=== PATIENT | female | born 1995 | race Caucasian/White ===

== ENCOUNTER 2021-09-12 18:04 | Emergency (ER) | payer OTHER, SELFPAY ==
[2021-09-12 18:05] VITALS: PULSE 112; RESP 17; TEMP 36.6; O2SAT 99; BMI 30.4
[2021-09-12 18:08] VITALS: BP 138/93
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
--- NOTE | 2021-09-12 18:47 | ED.RN ---
Now clinic closed for the day. [facility] aware of problem. Has requested patient to be seen by [facility] tomorrow for testing.
== END 2021-09-12 18:55 | disposition home or self-care (01) ==
PROVIDERS: Emergency Provider Emergency Medicine; Visit Provider Emergency Medicine
DX: S80.812A Abrasion, left lower leg, initial encounter (principal); S61.259A Open bite of unspecified finger without damage to nail, initial encounter; S80.12XA Contusion of left lower leg, initial encounter; S00.81XA Abrasion of other part of head, initial encounter; Y04.8XXA Assault by other bodily force, initial encounter
CPT/HCPCS: 99282